=== PATIENT | female | born 2000 | race Caucasian/White ===

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

== ENCOUNTER 2019-01-01 05:34 | Emergency (ER) | payer OTHER ==
[~2019-01-01 05:34] MED LIST changes: -GASTROGRAFIN SOLUTION 30ML (Q9963) As Ordered ONE; -ISOVUE-370 76% 100ML VIAL (Q9967) As Ordered ONE
[2019-01-01] MEDS ORDERED: LEVO50TA5 PO (05:42)
[2019-01-01] MEDS ORDERED: NS 1,000 ML IV ONE (06:15)
[2019-01-01] MEDS ORDERED: METOCLOPRAMIDE INJ 10MG/2ML VIAL (J2765) IV ONE (06:15)
[2019-01-01 06:20] LABS: BASO % 0.2 % (0.0-1.0); EOS % 0.2 % (0.0-3.0); HEMOGLOBIN 12.8 g/dl (12.0-15.5); LYMPH # 0.8 10^3/uL (1.5-6.5); LYMPH % 4.9 % (24.0-44.0); MEAN CORPUSCULAR HEMOGLOBIN 27.8 pg (27.0-33.0); MEAN CORPUSCULAR HGB CONC 33.7 g/dl (32.0-36.5); MEAN CORPUSCULAR VOLUME 82.6 fl (80.0-96.0); MONO # 0.9 10^3/uL (0.0-0.8); MONO % 5.3 % (0.0-5.0); NEUTROPHILS # 15.1 10^3/uL (1.8-7.7); PLATELET COUNT, AUTOMATED 382 10^3/uL (150-450)
[2019-01-01 06:38] LABS: ACETONE/KETONE 1.54 MG/DL (<2.81); ALBUMIN 3.7 GM/DL (3.2-5.2); ALT/SGPT 18 U/L (12-78); BILIRUBIN,DIRECT 0.1 MG/DL (0.0-0.2); BILIRUBIN,TOTAL 0.5 MG/DL (0.2-1.0); BLOOD UREA NITROGEN 14 MG/DL (7-18); CALCIUM LEVEL 8.6 MG/DL (8.5-10.1); CARBON DIOXIDE LEVEL 26 MEQ/L (21-32); CHLORIDE LEVEL 104 MEQ/L (98-107); CREATININE FOR GFR 0.71 MG/DL (0.55-1.30); GLUCOSE, FASTING 202 MG/DL (70-100); LIPASE 43 U/L (73-393); POTASSIUM SERUM 3.9 MEQ/L (3.5-5.1); SODIUM LEVEL 138 MEQ/L (136-145); TOTAL PROTEIN 6.4 GM/DL (6.4-8.2)
[2019-01-01 06:41] LABS: HCG, SERUM QUALITATIVE NEGATIVE (NEGATIVE)
[2019-01-01] MEDS ORDERED: REGL10TA6 PO (06:44)
[2019-01-01 07:27] LABS: FREE THYROXINE INDEX 3.2 % (1.3-4.8); T UPTAKE 31 % (30-39); THYROXINE (T4) 10.2 UG/DL (6.0-11.6)
[2019-01-01 07:48] VITALS: BP 110/60
== END 2019-01-01 08:04 | disposition home or self-care (01) ==
LOC: M ED 05:34 → EDBD 05:34 → M ED 08:04
DX: E10.649 Type 1 diabetes mellitus with hypoglycemia without coma (principal); K52.9 Noninfective gastroenteritis and colitis, unspecified; E03.9 Hypothyroidism, unspecified; Z87.891 Personal history of nicotine dependence; F31.9 Bipolar disorder, unspecified; F90.9 Attention-deficit hyperactivity disorder, unspecified type; F91.3 Oppositional defiant disorder
CPT/HCPCS: 80048; 80076; 82010; 83690; 84436; 84443; 84479; 84703; 85025; 96374; 99284; J2765

== ENCOUNTER → 2019-01-09 | Outpatient (CLI) | payer OTHER ==
[~2019-01-09] MED LIST changes: +LEVO50TA5 PO; +REGL10TA6 PO
--- NOTE | 2019-01-09 14:11 | REP ---
FOCUSED BILATERAL BREAST SONOGRAPHY: HISTORY: Persistent bilateral breast pain. Upper outer quadrant pain on the left and all four quadrants on the right. No comparison breast imaging. FINDINGS: On the right, the entire breast is scanned. Heterogeneous fibroglandular background echotexture is seen. There are some dilated ducts posterior to the nipple. No significant abnormality is noted sonographically. No cyst or mass is seen. No acoustic shadowing is noted. The left breast is scanned from 12-o'clock to 3-o'clock position through the upper outer quadrant. Heterogeneous fibroglandular background echotexture is seen. A few mildly dilated ducts are seen posterior to the nipple. No suspicious abnormality is observed. No cyst, mass, or acoustic shadowing is seen. IMPRESSION: BI-RADS category 2 benign findings. Clinical followup is advised. Electronically Signed by Rene Karimi MD 01/09/2019 03:20 P
== END ==
LOC: M RAD 12:09
PROVIDERS: ATTEND Nurse Practitioner Family
DX: N64.4 Mastodynia (principal)

== ENCOUNTER 2019-09-28 14:29 | Emergency (ER) | payer OTHER ==
[~2019-09-28] VITALS: Ht 157.5 cm; Wt 98.0 kg
[~2019-09-28 14:29] MED LIST changes: +MULTCAP PO; -TRAZ-163 PO; +TRAZ-257 PO; +ZONI25CA13; -ZONI25CA2
[2019-09-28] MEDS ORDERED: ADME100I (14:37)
[2019-09-28 15:22] LABS: BASO % 0.3 % (0.0-1.0); EOS # 0.1 10^3/uL (0.0-0.5); HEMATOCRIT 37.2 % (36.0-47.0); HEMOGLOBIN 12.3 g/dl (12.0-15.5); LYMPH # 1.6 10^3/uL (1.5-5.0); LYMPH % 28.1 % (24.0-44.0); MEAN CORPUSCULAR HEMOGLOBIN 27.7 pg (27.0-33.0); MEAN CORPUSCULAR HGB CONC 33.1 g/dl (32.0-36.5); MEAN CORPUSCULAR VOLUME 83.8 fl (80.0-96.0); MONO # 0.5 10^3/uL (0.0-0.8); MONO % 8.2 % (0.0-5.0); NEUTROPHILS # 3.6 10^3/uL (1.5-8.5); NEUTROPHILS % 61.9 % (36.0-66.0); PLATELET COUNT, AUTOMATED 429 10^3/uL (150-450); RED BLOOD COUNT 4.44 10^6/uL (4.00-5.40); WHITE BLOOD COUNT 5.8 10^3/uL (4.0-10.0)
[2019-09-28 15:45] LABS: HCG, SERUM QUALITATIVE NEGATIVE (NEGATIVE)
[2019-09-28 15:46] LABS: ALBUMIN 3.6 GM/DL (3.2-5.2); ALT/SGPT 21 U/L (12-78); AMYLASE 31 U/L (25-115); BILIRUBIN,DIRECT 0.1 MG/DL (0.0-0.2); BILIRUBIN,TOTAL 0.4 MG/DL (0.2-1.0); BLOOD UREA NITROGEN 11 MG/DL (7-18); CALCIUM LEVEL 8.8 MG/DL (8.5-10.1); CARBON DIOXIDE LEVEL 25 MEQ/L (21-32); CHLORIDE LEVEL 104 MEQ/L (98-107); CREATININE FOR GFR 0.83 MG/DL (0.55-1.30); GLUCOSE, FASTING 351 MG/DL (70-100); POTASSIUM SERUM 4.2 MEQ/L (3.5-5.1); SODIUM LEVEL 136 MEQ/L (136-145); TOTAL PROTEIN 6.4 GM/DL (6.4-8.2)
[2019-09-28 16:08] LABS: LIPASE 53 U/L (73-393)
[2019-09-28] MEDS ORDERED: IBUPROFEN 600 MG TAB PO ONE (17:00)
--- NOTE | 2019-09-28 17:40 | REPVR ---
PROCEDURE INFORMATION: Exam: US Pelvis Complete, Transabdominal Exam date and time: 09/28/2019 5:17 PM Age: 19 years old Clinical indication: Pelvic pain; Additional info: Bial pelvic pain TECHNIQUE: Imaging protocol: Real-time transabdominal pelvic ultrasound with image documentation. Complete exam. COMPARISON: US PELVIC NON-OB COMPLETE 06/18/2017 3:26 AM FINDINGS: Uterus/cervix: Uterus measures 7.6 x 4.4 x 5.3 cm. Endometrial echo complex measures 4.1 mm. Right adnexa: Right ovary measures 3.9 x 3.9 x 3.4 cm. Volume 27 cc. Normal flow. Cyst in the right ovary measures 2.7 x 2.5 x 2.6 cm. Left adnexa: Left ovary measures 4.3 x 3.5 x 2.7 cm. Volume 21 cc. Normal flow. Left ovarian cyst measures 2.9 x 2.2 x 1.6 cm. Free fluid: None. Bladder: Examination limited by transabdominal technique an incompletely filled urinary bladder. Patient declined a vaginal ultrasound examination. IMPRESSION: Unremarkable limited examination. Electronically signed by: Dion Collins On 09/28/2019 17:40:29 PM
[2019-09-28 19:04] LABS: CHLAMYDIA DNA AMPLIFICATION NEGATIVE (NEGATIVE); GC DNA AMPLIFICATION NEGATIVE (NEGATIVE)
[2019-09-28] MEDS ORDERED: FLAG500T PO (19:19)
[2019-09-28 19:30] VITALS: BP 120/76
== END 2019-09-28 19:32 | disposition home or self-care (01) ==
LOC: M ED 14:29
DX: N76.0 Acute vaginitis (principal); G89.29 Other chronic pain; R10.2 Pelvic and perineal pain; R11.0 Nausea; R19.7 Diarrhea, unspecified; E10.9 Type 1 diabetes mellitus without complications; E03.9 Hypothyroidism, unspecified; J45.909 Unspecified asthma, uncomplicated; K64.9 Unspecified hemorrhoids; F41.9 Anxiety disorder, unspecified; F33.9 Major depressive disorder, recurrent, unspecified; F90.9 Attention-deficit hyperactivity disorder, unspecified type; F91.3 Oppositional defiant disorder; Z88.7 Allergy status to serum and vaccine; Z91.040 Latex allergy status; Z79.4 Long term (current) use of insulin; Z79.899 Other long term (current) drug therapy

== ENCOUNTER → 2019-12-31 | Outpatient (REF) | payer OTHER ==
[~2019-12-31] MED LIST changes: +ADME100I; +FLAG500T PO
[2019-12-31 18:52] LABS: CHLAMYDIA DNA AMPLIFICATION NEGATIVE (NEGATIVE); GC DNA AMPLIFICATION NEGATIVE (NEGATIVE)
== END ==
LOC: M SFHCWAGY 17:00
PROVIDERS: ATTEND Nurse Practitioner Women's Health
DX: Z11.3 Encounter for screening for infections with a predominantly sexual mode of transmission (principal)

== ENCOUNTER 2020-06-07 11:19 | Day surgery (SDC) | payer OTHER ==
[~2020-06-07] VITALS: Ht 157.5 cm; Wt 100.7 kg
[~2020-06-07 11:19] MED LIST changes: +BIOT1CAP2 PO; +DEPO150I12 IM; +IBUP200C28 PO; +MELA10TA PO
[2020-06-07] MEDS ORDERED: BUPR75TA5 PO (11:50)
[2020-06-07] MEDS ORDERED: DERM1TAB2 PO (11:50)
[2020-06-07] MEDS ORDERED: CETI10CA2 PO (11:50)
[2020-06-07] MEDS ORDERED: NS 1,000 ML IV ONE (12:00)
[2020-06-07] MEDS ORDERED: propofoL 200 MG/20 ML VIAL As Ordered ONE ×2 (12:16→12:53)
[2020-06-07] MEDS ORDERED: LIDOCAINE 2% 100MG/5ML SDV (FOR ANES.) As Ordered ONE (12:17)
[2020-06-07] MEDS ORDERED: fentaNYL 100 MCG/2 ML INJECTION (J3010) As Ordered ONE ×2 (12:33→13:03)
--- NOTE | 2020-06-07 13:12 | ROOR ---
Patient Name: Norma Gary Procedure Date: 06/07/2020 12:30 PM Date of : 2000 Age: 19 Room: [facility] Gender: Female Note Status: Finalized Procedure: Upper GI endoscopy Indications: Functional Dyspepsia, Suspected gastroparesis Providers: Rakesh Arredondo MD Referring MD: Lisbet DRAPER NP Requesting Provider: Medicines: Monitored Anesthesia Care Complications: No immediate complications. Procedure: Pre-Anesthesia Assessment: - Prior to the procedure, a History and Physical was performed, and patient medications and allergies were reviewed. The patient is competent. The risks and benefits of the procedure and the sedation options and risks were discussed with the patient. All questions were answered and informed consent was obtained. Patient identification and proposed procedure were verified by the physician, the nurse and the anesthesiologist in the procedure room. Mental Status Examination: alert and oriented. Airway Examination: normal oropharyngeal airway and neck mobility. Respiratory Examination: clear to auscultation. CV Examination: normal. Prophylactic Antibiotics: The patient does not require prophylactic antibiotics. Prior Anticoagulants: The patient has taken no previous anticoagulant or antiplatelet agents. ASA Grade Assessment: II - A patient with mild systemic disease. After reviewing the risks and benefits, the patient was deemed in satisfactory condition to undergo the procedure. The anesthesia plan was to use monitored anesthesia care (MAC). Immediately prior to administration of medications, the patient was re-assessed for adequacy to receive sedatives. The heart rate, respiratory rate, oxygen saturations, blood pressure, adequacy of pulmonary ventilation, and response to care were monitored throughout the procedure. The physical status of the patient was re-assessed after the procedure. The Endoscope was introduced through the mouth, and advanced to the second part of duodenum. The upper GI endoscopy was accomplished without difficulty. The patient tolerated the procedure well. Findings: The examined esophagus was normal. The Z-line was irregular and was found 39 cm from the incisors. Scattered mild inflammation characterized by erythema and granularity was found in the gastric antrum. Biopsies were taken with a cold forceps for Helicobacter pylori testing. Verification of patient identification for the specimen was done by the physician and nurse using the patient's name, date and medical record number. Estimated blood loss was minimal. The duodenal bulb and second portion of the duodenum were normal. Biopsies for histology were taken with a cold forceps for evaluation of celiac disease. Impression: - Normal esophagus. - Z-line irregular, 39 cm from the incisors. - Gastritis. Biopsied. - Normal duodenal bulb and second portion of the duodenum. Biopsied. Recommendation: - Patient has a contact number available for emergencies. The signs and symptoms of potential delayed complications were discussed with the patient. Return to normal activities tomorrow. Written discharge instructions were provided to the patient. - High fiber diet. - Continue present medications. - Await pathology results. - Telephone GI clinic for pathology results in 2 weeks. - Return to GI clinic if persistent symptoms or new symptoms. - Return to primary care physician. Rakesh Arredondo MD Rakesh Arredondo MD 06/07/2020 1:12:11 PM Electronically signed by Rakesh Arredondo MD Number of Addenda: 0 Note Initiated On: 06/07/2020 12:30 PM Estimated Blood Loss: Estimated blood loss was minimal.
--- NOTE | 2020-06-07 13:21 | ROOR ---
Patient Name: Norma Gary Procedure Date: 06/07/2020 12:31 PM Date of : 2000 Age: 19 Room: [facility] Gender: Female Note Status: Finalized Procedure: Colonoscopy Indications: Chronic diarrhea, Hematochezia Providers: Rakesh Arredondo MD Referring MD: Lisbet DRAPER NP Requesting Provider: Medicines: Monitored Anesthesia Care Complications: No immediate complications. Procedure: Pre-Anesthesia Assessment: - Prior to the procedure, a History and Physical was performed, and patient medications and allergies were reviewed. The patient is competent. The risks and benefits of the procedure and the sedation options and risks were discussed with the patient. All questions were answered and informed consent was obtained. Patient identification and proposed procedure were verified by the physician, the nurse and the anesthesiologist in the procedure room. Mental Status Examination: alert and oriented. Airway Examination: normal oropharyngeal airway and neck mobility. Respiratory Examination: clear to auscultation. CV Examination: normal. Prophylactic Antibiotics: The patient does not require prophylactic antibiotics. Prior Anticoagulants: The patient has taken no previous anticoagulant or antiplatelet agents. ASA Grade Assessment: II - A patient with mild systemic disease. After reviewing the risks and benefits, the patient was deemed in satisfactory condition to undergo the procedure. The anesthesia plan was to use monitored anesthesia care (MAC). Immediately prior to administration of medications, the patient was re-assessed for adequacy to receive sedatives. The heart rate, respiratory rate, oxygen saturations, blood pressure, adequacy of pulmonary ventilation, and response to care were monitored throughout the procedure. The physical status of the patient was re-assessed after the procedure. The Colonoscope was introduced through the anus and advanced to the cecum, identified by appendiceal orifice and ileocecal valve. The colonoscopy was performed without difficulty. The patient tolerated the procedure well. The quality of the bowel preparation was fair except the ascending colon was poor. The terminal ileum, ileocecal valve, appendiceal orifice, and rectum were photographed. Scope insertion time was 3 minutes. Scope withdrawal time was 12 minutes. The total duration of the procedure was 15 minutes. Findings: The perianal and digital rectal examinations were normal. The terminal ileum appeared normal. A 15 mm polyp was found in the descending colon. The polyp was semi-pedunculated. The polyp was removed with a hot snare. Resection and retrieval were complete. Verification of patient identification for the specimen was done by the physician and nurse using the patient's name, date and medical record number. Estimated blood loss was minimal. Non-bleeding external and internal hemorrhoids were found during retroflexion. The hemorrhoids were medium-sized. A large amount of semi-solid stool was found from transverse colon to cecum, precluding visualization. Lavage of the area was performed using a large amount of sterile water, resulting in incomplete clearance with continued poor visualization. Normal mucosa was found in the left colon. Biopsies for histology were taken with a cold forceps from the right colon, left colon and rectosigmoid colon for evaluation of microscopic colitis. Impression: - The examined portion of the ileum was normal. - One 15 mm polyp in the descending colon, removed with a hot snare. Resected and retrieved. - Non-bleeding external and internal hemorrhoids. - Stool from transverse colon to cecum. - Normal mucosa in the left colon. Biopsied. Recommendation: - Patient has a contact number available for emergencies. The signs and symptoms of potential delayed complications were discussed with the patient. Return to normal activities tomorrow. Written discharge instructions were provided to the patient. - Resume previous diet. - Continue present medications. - Await pathology results. - Telephone GI clinic to schedule appointment in 2 weeks. - If the pathology report reveals adenomatous tissue, then repeat the colonoscopy for surveillance based on pathology results in 3 years. - If the pathology report reveals no adenomatous tissue, then repeat the colonoscopy for screening purposes at age of 44 years. - Telephone GI clinic if symptomatic. - Return to primary care physician. Rakesh Arredondo MD Rakesh Arredondo MD 06/07/2020 1:20:07 PM Electronically signed by Rakesh Arredondo MD Number of Addenda: 0 Note Initiated On: 06/07/2020 12:31 PM Estimated Blood Loss: Estimated blood loss was minimal.
[2020-06-07 13:53] VITALS: BP 127/73
== END 2020-06-07 13:55 | disposition home or self-care (01) ==
LOC: M OPP 11:19
PROVIDERS: ATTEND Internal Medicine Gastroenterology
DX: D12.4 Benign neoplasm of descending colon (principal); K64.8 Other hemorrhoids; K52.9 Noninfective gastroenteritis and colitis, unspecified; K92.1 Melena; K22.8 Other specified diseases of esophagus; K29.70 Gastritis, unspecified, without bleeding; K30 Functional dyspepsia; I10 Essential (primary) hypertension; E10.9 Type 1 diabetes mellitus without complications; Z96.41 Presence of insulin pump (external) (internal); Z79.899 Other long term (current) drug therapy; Z88.8 Allergy status to other drugs, medicaments and biological substances; Z91.040 Latex allergy status
CPT/HCPCS: 43239; 45380; 45385; 88305; J3010; U0002

== ENCOUNTER 2020-06-08 18:40 | Emergency (ER) | payer OTHER ==
[~2020-06-08] VITALS: Ht 157.5 cm; Wt 100.0 kg
[~2020-06-08 18:40] MED LIST changes: +BUPR75TA5 PO; +CETI10CA2 PO; +DERM1TAB2 PO
[2020-06-08 18:41] VITALS: BP 140/80
== END 2020-06-08 21:02 | disposition left against medical advice (07) ==
LOC: M ED 18:40
DX: Z53.21 Procedure and treatment not carried out due to patient leaving prior to being seen by health care provider (principal)

== ENCOUNTER → 2020-11-24 | Outpatient (REF) | payer OTHER | LOC: M SFHCWAGY 17:08 | PROVIDERS: ATTEND Nurse Practitioner Family | DX: Z12.4 Encounter for screening for malignant neoplasm of cervix (principal) ==

== ENCOUNTER → 2020-12-12 | Outpatient (CLI) | payer OTHER ==
--- NOTE | 2020-12-12 14:28 | REP ---
INDICATION: R10.2 PELVIC PAIN. COMPARISON: 09/28/2019. TECHNIQUE: Transabdominal and transvaginal scanning performed. FINDINGS: Uterine dimensions are 6.2 x 3.8 x 4.6 cm. Endometrial echo is 8 mm in AP dimension and centrally placed. The bladder measures 11.6 x 5.7 x 9.8cm. The right ovary has dimensions of 4.3 x 3.5 x 3.2 cm. The left ovary dimensions are 2.9 x 1.9 x 1.3 cm. Blood flow seen in each ovary with duplex Doppler evaluation of the with no torsion. There is a cyst of the right ovary which measures 2.8 x 2.1 x 2.7 cm. No free fluid is seen in the cul-de-sac. IMPRESSION: Very small right ovarian cyst 2.8 cm in maximum diameter. No other evidence of mass or free fluid. No torsion. <Electronically signed by Denton Rosa > 12/12/20 [id number]
== END ==
LOC: M WHC 13:25
PROVIDERS: ATTEND Nurse Practitioner Family
DX: N83.201 Unspecified ovarian cyst, right side (principal)

== ENCOUNTER 2021-04-22 00:35 | Emergency (ER) | payer OTHER ==
[~2021-04-22] VITALS: Ht 157.5 cm; Wt 103.6 kg
[2021-04-22] MEDS ORDERED: DIFL200T PO (07:31)
[2021-04-22] MEDS ORDERED: CEPH500C PO (07:31)
[2021-04-22 07:41] VITALS: BP 132/82
== END 2021-04-22 07:55 | disposition home or self-care (01) ==
LOC: M ED 00:35
DX: L60.0 Ingrowing nail (principal); E10.9 Type 1 diabetes mellitus without complications; J45.909 Unspecified asthma, uncomplicated; Z91.040 Latex allergy status; Z88.8 Allergy status to other drugs, medicaments and biological substances

== ENCOUNTER → 2022-04-03 | Outpatient (CLI) | payer OTHER ==
[~2022-04-03] MED LIST changes: +CEPH500C PO; +DIFL200T PO
[2022-04-03 13:26] LABS: HEMATOCRIT 38.3 % (36.0-47.0); HEMOGLOBIN 13.1 g/dl (12.0-15.5); MEAN CORPUSCULAR HGB CONC 34.2 g/dl (32.0-36.5); MEAN CORPUSCULAR VOLUME 84.7 fl (80.0-96.0); PLATELET COUNT, AUTOMATED 405 10^3/uL (150-450); RED BLOOD COUNT 4.52 10^6/uL (4.00-5.40); WHITE BLOOD COUNT 6.3 10^3/uL (4.0-10.0)
[2022-04-03 14:49] LABS: ALBUMIN 3.7 GM/DL (3.2-5.2); ALT/SGPT 24 U/L (12-78); BILIRUBIN,TOTAL 0.5 MG/DL (0.2-1.0); BLOOD UREA NITROGEN 10 MG/DL (7-18); CALCIUM LEVEL 9.2 MG/DL (8.5-10.1); CARBON DIOXIDE LEVEL 25 MEQ/L (21-32); CHLORIDE LEVEL 106 MEQ/L (98-107); CHOLESTEROL LEVEL 180 MG/DL (<200); CHOLESTEROL RISK RATIO 4.615 (<5); CREATININE FOR GFR 0.86 MG/DL (0.55-1.30); FREE T4 1.24 NG/DL (0.76-1.46); GLOMERULAR FILTRATION RATE > 60.0 (>60); GLUCOSE, FASTING 281 MG/DL (70-100); HDL CHOLESTEROL 39 MG/DL (>40); LDL CHOLESTEROL 133 MG/DL (<100); NON-HDL-C 141 MG/DL; POTASSIUM SERUM 4.5 MEQ/L (3.5-5.1); SODIUM LEVEL 135 MEQ/L (136-145); TOTAL PROTEIN 6.8 GM/DL (6.4-8.2); TRIGLYCERIDES LEVEL 41 MG/DL (<150)
[2022-04-04 00:07] LABS: HEMOGLOBIN A1c 8.4 %
== END ==
LOC: M LAB 12:27
PROVIDERS: ATTEND Physician Assistant Medical
DX: E10.9 Type 1 diabetes mellitus without complications (principal); E03.9 Hypothyroidism, unspecified; E78.5 Hyperlipidemia, unspecified

== ENCOUNTER → 2022-04-15 | Outpatient (CLI) | payer OTHER | LOC: M LAB 12:35 | PROVIDERS: ATTEND Student in an Organized Health Care Education/Training Program | DX: M54.50 Low back pain, unspecified (principal) ==

== ENCOUNTER → 2022-08-25 | Outpatient (CLI) | payer OTHER | LOC: M RAD 13:09 | PROVIDERS: ATTEND Student in an Organized Health Care Education/Training Program | DX: M25.531 Pain in right wrist (principal) ==

== ENCOUNTER → 2022-08-25 | Outpatient (CLI) | payer OTHER ==
[2022-08-25 14:13] LABS: CREATININE, URINE 115.5 MG/DL; MALB URINE SIEMENS < 5.0 MG/DL; MAU/CREAT RATIO 4.3 MCG/MG (0.0-30.0)
[2022-08-25 14:14] LABS: ALBUMIN 3.9 G/DL (3.2-5.2); ALKALINE PHOSPHATASE 100 U/L (46-116); ALT/SGPT 23 U/L (7.0-40); AST/SGOT 11 U/L (<34); BILIRUBIN,TOTAL 0.3 MG/DL (0.3-1.2); BLOOD UREA NITROGEN 14 MG/DL (9-23); CALCIUM LEVEL 9.7 MG/DL (8.5-10.1); CARBON DIOXIDE LEVEL 24 MMOL/L (20-31); CHLORIDE LEVEL 107 MMOL/L (98-107); CREATININE FOR GFR 0.65 MG/DL (0.55-1.30); GLOMERULAR FILTRATION RATE > 60.0 (>60); GLUCOSE, FASTING 194 MG/DL (60-100); POTASSIUM SERUM 4.2 MMOL/L (3.5-5.1); SODIUM LEVEL 139 MMOL/L (136-145); TOTAL PROTEIN 6.8 G/DL (5.7-8.2)
[2022-08-25 14:16] LABS: FREE T4 1.32 NG/DL (0.89-1.76); THYROID STIMULATING HORMONE 2.751 uIU/ML (0.55-4.78)
[2022-08-25 15:55] LABS: HEMOGLOBIN A1c 8.2 % (4.0-6.0)
== END ==
LOC: M LAB 13:12
PROVIDERS: ATTEND Physician Assistant Medical
DX: E10.9 Type 1 diabetes mellitus without complications (principal)

== ENCOUNTER → 2022-08-27 | Outpatient (CLI) | payer OTHER | LOC: M RAD 14:10 | PROVIDERS: ATTEND Physician Assistant | DX: N93.9 Abnormal uterine and vaginal bleeding, unspecified (principal) ==

== ENCOUNTER → 2022-10-18 | Outpatient (CLI) | payer OTHER | LOC: M PLAIMG 15:02 | PROVIDERS: ATTEND Pain Medicine Pain Medicine | DX: M54.50 Low back pain, unspecified (principal) ==

== ENCOUNTER 2024-08-03 19:40 | Emergency (ER) | payer OTHER ==
[~2024-08-03] VITALS: Ht 157.5 cm; Wt 101.5 kg
[~2024-08-03 19:40] MED LIST changes: +DICY-61; -DICY10CA13; -MELA10TA PO; +MELATONIN CR10 MG PO
[2024-08-03 19:59] VITALS: BP 140/85; TEMP 98.2; O2SAT 100
== END 2024-08-03 21:44 | disposition left against medical advice (07) ==
LOC: M ED 19:40
DX: Z53.21 Procedure and treatment not carried out due to patient leaving prior to being seen by health care provider (principal)

== ENCOUNTER 2024-09-15 14:20 | Emergency (ER) | payer OTHER ==
[~2024-09-15] VITALS: Ht 157.5 cm; Wt 103.8 kg
[2024-09-15] MEDS: ONDANSETRON 4MG 2ML VIAL IV STA (16:03)
[2024-09-15] MEDS: NS (Normal Saline) 0.9% 1,000 ML IV ONE (16:03)
[2024-09-15 16:18] LABS: VENOUS BASE EXCESS -0.8 (-2.0-2.0); VENOUS HCO3 26.3 MMOL/L (23.0-27.0); VENOUS O2 SATURATION 75.7 % (60.0-80.0); VENOUS PARTIAL PRESSURE CO2 53.3 mmHg (38.0-50.0); VENOUS PARTIAL PRESSURE O2 41.7 mmHg (30.0-50.0); VENOUS PH 7.311 UNITS (7.330-7.430); VENOUS STANDARD HCO3 23.3 MMOL/L; VENOUS TOTAL CO2 27.9 MMOL/L (24.0-28.0)
[2024-09-15 16:22] LABS: BASO % 0.1 % (0.0-1.0); EOS % 0.1 % (0.0-3.0); HEMATOCRIT 37.9 % (36.0-47.0); LYMPH # 0.3 10^3/uL (1.5-5.0); LYMPH % 1.6 % (24.0-44.0); MEAN CORPUSCULAR HEMOGLOBIN 29.4 pg (27.0-33.0); MEAN CORPUSCULAR HGB CONC 34.3 g/dl (32.0-36.5); MEAN CORPUSCULAR VOLUME 85.7 fl (80.0-96.0); MONO # 0.7 10^3/uL (0.0-0.8); MONO % 4.2 % (2.0-8.0); NEUTROPHILS % 93.6 % (36.0-66.0); PLATELET COUNT, AUTOMATED 358 10^3/uL (150-450); RED BLOOD COUNT 4.42 10^6/uL (4.00-5.40); WHITE BLOOD COUNT 16.1 10^3/uL (4.0-10.0)
[2024-09-15 16:38] LABS: KETONE, URINE AUTO RFX TRACE mg/dL (NEGATIVE); LEUKOCYTE ESTERASE UR AUTO RFX NEGATIVE (NEGATIVE); MUCUS, URINE RFX SMALL (NEGATIVE); NITRITE, URINE AUTO RFX NEGATIVE (NEGATIVE); RBC, URINE AUTO RFX 61 /HPF (0-3); SQUAM EPITHELIAL CELL UR AURFX 1 /HPF (0-6); WBC, URINE AUTO RFX 1 /HPF (0-3)
[2024-09-15 16:46] LABS: LIPASE 20 U/L (12-53)
[2024-09-15 16:48] LABS: ALKALINE PHOSPHATASE 69 U/L (35-104); ALT/SGPT 21 U/L (7.0-40); AST/SGOT 11 U/L (<34); BILIRUBIN,DIRECT 0.3 MG/DL (<0.4); BLOOD UREA NITROGEN 20 MG/DL (9-23); CALCIUM LEVEL 9.1 MG/DL (8.5-10.1); CARBON DIOXIDE LEVEL 26 MMOL/L (20-31); CHLORIDE LEVEL 104 MMOL/L (98-107); CREATININE FOR GFR 0.74 MG/DL (0.55-1.30); GLOMERULAR FILTRATION RATE > 60.0 (>60); GLUCOSE, FASTING 204 MG/DL (60-100); POTASSIUM SERUM 4.5 MMOL/L (3.5-5.1); SODIUM LEVEL 137 MMOL/L (136-145); TOTAL PROTEIN 6.6 G/DL (5.7-8.2)
[2024-09-15 16:50] LABS: HCG, SERUM QUALITATIVE NEGATIVE (NEGATIVE)
[2024-09-15] MEDS ORDERED: ONDA-282 PO (17:43)
[2024-09-15 17:57] VITALS: BP 120/67; TEMP 99.4; O2SAT 95
== END 2024-09-15 18:09 | disposition home or self-care (01) ==
LOC: M ED 14:20
DX: R11.10 Vomiting, unspecified (principal); R19.7 Diarrhea, unspecified; E10.65 Type 1 diabetes mellitus with hyperglycemia; F41.9 Anxiety disorder, unspecified; F32.A Depression, unspecified; Z88.8 Allergy status to other drugs, medicaments and biological substances; Z91.040 Latex allergy status; Z79.4 Long term (current) use of insulin; Z79.83 Long term (current) use of bisphosphonates; Z79.2 Long term (current) use of antibiotics; Z79.899 Other long term (current) drug therapy
CPT/HCPCS: 80047; 80048; 80076; 81001; 82803; 83605; 83690; 84703; 85025; 93041; 96361; 96374; 99285; J2405

== ENCOUNTER 2025-04-24 00:12 | Emergency (ER) | payer OTHER, MEDICAID ==
[~2025-04-24] VITALS: Ht 157.5 cm; Wt 112.5 kg
[~2025-04-24 00:12] MED LIST changes: +ONDA-282 PO
[2025-04-24 02:21] LABS: BASO # 0.0 10^3/uL (0.0-0.2); BASO % 0.2 % (0.0-1.0); EOS # 0.1 10^3/uL (0.0-0.5); EOS % 1.1 % (0.0-3.0); LYMPH # 1.2 10^3/uL (1.5-5.0); LYMPH % 9.4 % (24.0-44.0); MONO # 0.7 10^3/uL (0.0-0.8); MONO % 6.0 % (2.0-8.0); NEUTROPHILS # 10.3 10^3/uL (1.5-8.5); NEUTROPHILS % 83.0 % (36.0-66.0); PLATELET COUNT, AUTOMATED 351 10^3/uL (150-450)
[2025-04-24 02:50] LABS: CALCIUM LEVEL 8.9 MG/DL (8.5-10.1); CARBON DIOXIDE LEVEL 26 MMOL/L (20-31); CHLORIDE LEVEL 105 MMOL/L (98-107); CREATININE FOR GFR 0.70 MG/DL (0.55-1.30); GLOMERULAR FILTRATION RATE > 90.0 (>60); POTASSIUM SERUM 4.2 MMOL/L (3.5-5.1); SODIUM LEVEL 141 MMOL/L (136-145)
[2025-04-24 03:04] LABS: HCG, SERUM QUANTITATIVE 2071.6 MIU/ML (<4.2)
[2025-04-24] MEDS: KETOROLAC 30 MG/ML 1 ML VIAL IV ONE (03:18)
[2025-04-24 04:23] VITALS: BP 133/70; TEMP 97.4
[2025-04-24 04:27] VITALS: O2SAT 100
[2025-04-24] MEDS: NORCO 5/325MG TABLET (HOME DOSE PACK) PO ONE (04:35)
== END 2025-04-24 04:40 | disposition home or self-care (01) ==
LOC: M ED 00:12
DX: R10.2 Pelvic and perineal pain (principal); N93.9 Abnormal uterine and vaginal bleeding, unspecified; E11.9 Type 2 diabetes mellitus without complications; F31.9 Bipolar disorder, unspecified; F90.9 Attention-deficit hyperactivity disorder, unspecified type; Z79.4 Long term (current) use of insulin; Z91.040 Latex allergy status; Z88.8 Allergy status to other drugs, medicaments and biological substances; Z79.2 Long term (current) use of antibiotics; Z79.899 Other long term (current) drug therapy
CPT/HCPCS: 76801; 76817; 80048; 84702; 85025; 86850; 86900; 86901; 93976; 96374; 99284; J1885